=== PATIENT | male | born 1950 | race Caucasian/White ===

== ENCOUNTER 2019-02-10 10:24 | Inpatient (IN) ==
[2019-02-10] MEDS ORDERED: Isovue-370 500 ML BOTTLE IVP ONE ×2 (11:21→11:22)
--- NOTE | 2019-02-10 11:23 | Emergency Department Note ---
Disposition Clinical Impression: End stage liver disease, Colitis Disposition: Admitted As Inpatient Condition: Fair Referrals: Fredy Gilbert MD [Primary Care Provider] - Forms: ED Satisfaction Letter, Work/School Release Time of Disposition: 13:25 Abdominal Pain HPI - General Chief Complaint: ED Abdominal Pain Stated Complaint: ABD Pain,nausea, Time Seen by Provider: 02/10/19 11:16 Source: patient - History of Present Illness HPI Narrative: Patient is 69-year-old male presents to emergency room with a one month history of abdominal pain, swelling. The patient states that he cannot burp. The patient has had diminished appetite. The patient is an alcoholic. The patient denies any history of liver failure. The patient has never had a paracentesis. The patient also complains of leg swelling. He denies any chest pain, shortness of breath, headache fevers or chills. He states that he has not had any other diarrhea or urinary complaints. Patient denies any dysuria or urinary frequency. The patient states otherwise nothing else makes symptoms much better or worse. Pain Scale: 4 - Related Data Home Medications Medication Instructions Recorded Confirmed Metoprolol XL (24 HR) Succ [Toprol 100 mg PO PMHY 03/05/15 02/10/19 XL] Amlodipine Besylate 5 mg PO DAILY 02/10/19 02/10/19 Previous Rx's Medication Instructions Recorded Thiamine (B-1) [Vitamin B-1] 100 mg PO DAILY 20 Days tablet 03/06/15 Allergies Allergy/AdvReac Type Severity Reaction Status Date / Time No Known Allergies Allergy Verified 01/18/19 08:43 Review of Systems: As mentioned per history of present illness and as follows. Constitutional: Negative for chills or fever HENT: Negative for sore throat. Eyes: Negative for visual disturbance Respiratory: Negative for shortness of breath. Cardiovascular: Negative for palpitations. Gastrointestinal: Positive for abdominal pain Genitourinary: Negative for dysuria Musculoskeletal: Negative for back pain. Skin: Negative for rash. Neurological: Negative for focal weakness Psychiatric/Behavioral: Negative for depression Abdominal Pain PMH - Past Medical History Medical history: Reports: asthma, hypertension, other Male Surgical History: Reports: cholecystectomy, herniorrhaphy Psychiatric history: Reports: no psych history - Social History Smoking status: Current every day smoker Alcohol use: Reports: heavy Drug use: Reports: none Physical Exam PHYSICAL EXAM Constitutional: Well developed, Well nourished, No acute distress, Non-toxic appearance. HENT: Normocephalic, Atraumatic, Bilateral external ears normal, Oropharynx moist, No oral exudates, Nose normal. Neck- Normal range of motion, No tenderness, Supple. Eyes: PERRL, EOMI, Conjunctiva positive for scleral icterus,. Cardiovascular: Regular rate and rhythm without clicks, rubs, gallops or murmurs. Respiratory: Normal breath sounds, No respiratory distress, No wheezing, rhonchi, or crackles. GI: Abdomen is distended, overall nontender on exam, no evidence of guarding or peritoneal signs. Bowel sounds are active. Musculoskeletal: Good range of motion in all major joints. No tenderness to palpation or major deformities noted. +5/5 strength noted to all extremities. Integument: Warm, Dry, jaundiced appearing, No erythema, No rash. +2 to +3 pretibial edema lower extremities bilaterally Neurologic: Alert & oriented x 3, Normal sensory function, No focal deficits noted. CN II-XII grossly intact. - General Limitations: no limitations General appearance: alert, in no apparent distress Course Vital Signs Temperature 98.0 F 02/10/19 10:35 Pulse Rate 111 02/10/19 10:35 Respiratory Rate 18 02/10/19 10:35 Blood Pressure 139/83 02/10/19 10:35 O2 Sat by Pulse Oximetry 92 02/10/19 10:35 Temperature 98.0 F 02/10/19 10:35 Pulse Rate 93 02/10/19 11:43 Respiratory Rate 18 02/10/19 11:43 Blood Pressure 137/87 02/10/19 11:43 O2 Sat by Pulse Oximetry 96 02/10/19 11:43 Oxygen Delivery Oxygen Delivery Room Air Abdominal Pain - MDM Narrative Medical decision making narrative: EKG was performed that showed evidence of sinus rhythm, do not appreciate significant ST elevation or significant depression, AL and QT intervals within normal limits. Interpreted by myself Patient is jaundiced, patient appears to have liver failure, patient also does have ascites of the abdomen, patient also does have colitis as well on the CT. At this time the patient has a mildly elevated white count, no evidence of severe sepsis. Patient will be treated with IV antibiotics. The patient will be admitted to the hospitalist. At this time the patient will be admitted in stable condition. Patient was given IV Cipro and Flagyl here in the emergency room. Patient however is not septic, there is no evidence of ischemic colitis. Final impression 1. End-stage liver disease 2. Ascites 3. Ascending colitis - Lab Data Result diagrams: 02/10/19 11:11 02/10/19 11:11 Lab Results 02/10/19 02/10/19 Range/Units 11:11 11:11 WBC 12.9 H (4.3-11.1) K/mcL RBC 3.57 L (4.19-5.50) M/mcL Hgb 13.9 (12.9-16.9) g/dL Hct 40.0 (37.5-50.1) % MCV 112.0 H (83.0-100.0) fL MCH 38.9 H (28.0-33.3) pg MCHC 34.8 (31.6-35.5) g/dL RDW 15.2 H (11.5-14.5) % Plt Count 121 L (140-400) K/mcL MPV 12.3 (9.4-12.4) fL Immature Gran % 0.5 (0-4) % Seg Neutrophils % 75.9 % Lymphocytes % 11.7 % Monocytes % 9.0 % Eosinophils % 1.8 % Basophils % 1.1 % Neutrophils # 9.8 H (1.6-8.9) K/mcL Lymphocytes # 1.5 (0.6-4.6) K/mcL Monocytes # 1.2 (0.0-1.3) K/mcL Eosinophils # 0.2 (0.0-0.6) K/mcL Basophils # 0.1 (0.0-0.2) K/mcL Platelet Estimate Slight Decrease L (Normal) Macrocytosis Present A (Not Present) Sodium 136 (136-145) mEq/L Potassium 3.5 (3.5-5.1) mEq/L Chloride 100 (98-107) mEq/L Carbon Dioxide 26 (23-29) mEq/L BUN 9 (8-23) mg/dL Creatinine 0.69 L (0.70-1.30) mg/dL Est GFR ( Amer) > 60 (> 60) Est GFR (Non-Af Amer) > 60 (> 60) BUN/Creatinine Ratio 13 (6-26) Glucose 173 H (70-105) mg/dL Calculated Osmolality 285 (280-300) Calcium 8.9 (8.6-10.3) mg/dL Total Bilirubin 8.7 H (0.3-1.0) mg/dL Direct Bilirubin 4.3 H (0.0-0.2) mg/dL Indirect Bilirubin 4.4 H (0.0-1.2) mg/dL AST 91 H (13-39) Units/L ALT 40 (7-52) Units/L Alkaline Phosphatase 235 H (34-104) Units/L Troponin I < 0.03 (< 0.04) ng/mL Serum Total Protein 6.7 (6.4-8.9) g/dL Albumin 2.7 L (3.5-5.7) g/dL Globulin 4.0 H (2.4-3.5) g/dL Albumin/Globulin Ratio 0.7 L (1.1-2.2) Lipase 132 H (11-82) Units/L
[2019-02-10 11:30] LABS: Basophils # 0.1 K/mcL (0.0-0.2); Basophils % 1.1 %; Eosinophils # 0.2 K/mcL (0.0-0.6); Eosinophils % 1.8 %; Hemoglobin 13.9 g/dL (12.9-16.9); Immature Granulocytes % 0.5 % (0-4); Lymphocytes # 1.5 K/mcL (0.6-4.6); Lymphocytes % 11.7 %; Mean Corpuscular HGB Conc 34.8 g/dL (31.6-35.5); Mean Corpuscular Hemoglobin 38.9 pg (28.0-33.3); Mean Platelet Volume 12.3 fL (9.4-12.4); Monocytes # 1.2 K/mcL (0.0-1.3); Neutrophils # 9.8 K/mcL (1.6-8.9); Platelet Count 121 K/mcL (140-400); Red Blood Count 3.57 M/mcL (4.19-5.50); Red Cell Distribution Width 15.2 % (11.5-14.5); Segmented Neutrophils % 75.9 %; White Blood Count 12.9 K/mcL (4.3-11.1)
[2019-02-10 11:47] LABS: Alanine Aminotransferase 40 Units/L (7-52); Albumin 2.7 g/dL (3.5-5.7); Albumin/Globulin Ratio 0.7 (1.1-2.2); Alkaline Phosphatase 235 Units/L (34-104); Aspartate Amino Transferase 91 Units/L (13-39); BUN/Creatinine Ratio 13 (6-26); Bilirubin,Direct 4.3 mg/dL (0.0-0.2); Bilirubin,Indirect 4.4 mg/dL (0.0-1.2); Bilirubin,Total 8.7 mg/dL (0.3-1.0); Blood Urea Nitrogen 9 mg/dL (8-23); Calcium 8.9 mg/dL (8.6-10.3); Carbon Dioxide 26 mEq/L (23-29); Chloride 100 mEq/L (98-107); Glucose 173 mg/dL (70-105); Lipase 132 Units/L (11-82); Osmolality,Calculated 285 (280-300); Potassium 3.5 mEq/L (3.5-5.1); Sodium 136 mEq/L (136-145); Total Protein 6.7 g/dL (6.4-8.9); eGFR For African Americans > 60 (> 60); eGFR For Non-African Americans > 60 (> 60)
[2019-02-10 11:54] LABS: Troponin I < 0.03 ng/mL (< 0.04)
[2019-02-10 12:06] LABS: Platelet Estimate Slight Decrease (Normal)
[2019-02-10 12:15] LABS: Macrocytosis Present (Not Present)
[2019-02-10] MEDS ORDERED: MetroNIDAZOLE 500 MG/100 ML 500 MG/100 ML BAG IVPB ONE (13:13)
[2019-02-10] MEDS ORDERED: Naloxone 0.4 MG/ML INJ IVP PRN (15:29)
[2019-02-10] MEDS ORDERED: Acetaminophen 325 MG TABLET PO PRN (15:39)
[2019-02-10] MEDS ORDERED: *HR* Promethazine 25 MG/ML VIAL IVP PRN (15:39)
[2019-02-10 15:53] LABS: INR 1.6; Prothrombin Time 17.9 Seconds (9.4-12.1)
[2019-02-10 17:04] LABS: RBC,Peritoneal Fluid < 0.002 M/mcL
[2019-02-10 17:05] LABS: Appearance of Peritoneal Fl CLEAR (Clear)
[2019-02-10 17:28] LABS: Amylase,Peritoneal Fluid 19 Units/L (No Ref Range); Glucose,Peritoneal Fluid 183 mg/dL (No Ref Range); LDH,Peritoneal Fluid 51 Units/L (No Ref Range); Total Protein,Peritoneal Fluid < 3.0 g/dL
[2019-02-10 18:28] LABS: Basophils,Peritoneal Fluid 0 %; Eosinophils,Peritoneal Fluid 0 %
--- NOTE | 2019-02-10 18:34 | Procedure Note ---
Date of procedure: 02/10/19 Pre-op diagnosis: New ascites Post-op diagnosis: same Procedure: PROCEDURE: Diagnostic and Therapeutic Paracentesis CONSENT: Obtained CHAIRMAN & CEO: Chandler Salvador MD PROCEDURE PERFORMED: INDICATION: Ascites A time-out was performed prior to the procedure. Ascites fluid was visualized with ultrasound and site was marked. Chlorhexadine was used to prep the skin. The patient was then draped in steril fashion. Chlorhexadine was again used to prep the skin. 10ml of 1% Lidocaine was used for local anesthesia. A safecentesis needle was used to access the abdominal cavity and a catheter was placed that drained straw-colored fluid. This was attached to vacume containers and a total of 4L of fluid was drained. The catheter was then removed. The procedure was well tolerated. ESTIMATED BLOOD LOSS: <5ml COMPLICATIONS: None Surgeon: Abiel Salvador Was there an retail assistant store manager present: No Estimated blood loss (cc): 5 Specimen: sent to lab Pathology: other Condition: stable Disposition: floor
--- NOTE | 2019-02-10 18:45 | Internal Med History&Physical ---
Date of Encounter: 02/10/19 Time of Encounter: 18:36 Internal Medicine - H&P: HPI Chief complaint: Abdominal distention Admitted From: Home Plans for Post Hospital Care: Home History of present illness: Mr. Fang is a 69 year old male with history of alcoholism and HTN presents with abdominal distention and swelling. Patient states that over the last month he has noted distention in his abdomen and swelling in his lower extremities. Has gotten progressively worse the past week. No history of this happening in t he past. Over the last few days he has also noted left upper quadrant abdominal pain. Feels like a dull ache. Not associated with eating. Notes some nausea and vomiting but says overall he has had a very poor appetite has not been eating much. Says she is having infrequent bowel movements that are solid. Denies blood in stool or dark tarry stools. Denies hematemesis. Drinks 5-10 shots of hard liquor per day. This intake has been stable for years and no recent binge drinking. No history of hepatitis B or C. No history of IV drug use. No family history of liver disease that he knows of but not close with his family. In the ED, hypertensive but otherwise stable. WBC of 12.9. Plt 121. Bili 8.7. AST 91. Lipasse 132. INR 1.6. CT abd/pelvis with ascending colitis w/o perf as well as duodenitis and mild inflammation around pancreas. Moderate ascites. Admitted to medicine. Past Med Surg Social Fam HX - Past Medical History Medical history: asthma, hypertension, other Additional medical history: Smoker, broken ribs, hernia Psychiatric history: no psych history - Past Surgical History Surgical History: other Additional surgical history: hernia repair - Social History Smoking Status: Current every day smoker Smokeless Tobacco Status: No Alcohol use: heavy Drug use: none - Family History Father Living Status: Unknown Hx Family Cardiac Disorders: Yes (HTN) Mother Living Status: Internal Medicine - H&P: Meds Amlodipine Besylate 5 mg PO DAILY 02/10/19 [History] Metoprolol Succinate [Toprol Xl] 100 mg PO DAILY 02/10/19 [History] Thiamine HCl [Vitamin B-1] 100 mg PO DAILY 02/10/19 [History] Allergy/AdvReac Type Severity Reaction Status Date / Time No Known Allergies Allergy Verified 01/18/19 08:43 All Systems PM: A 10-system review of systems was performed and is negative for pertinent findings except as documented above in the HPI. Review of systems: General: Fevers / Chills / Weight loss / Night sweats Eyes: Blurry Vision / Change in Vision HENT: Ear Pain / Ear Drainage / Rhinorrhea / Throat Pain / Lymphadenopathy Cardiovascular: Chest Pain / Palpatations / Orthopnea / SHETH / Weight gain Lungs: Dyspnea / Wheezing / Cough / Sputum production / Pleurisy Abdomen: Abdomen pain / Abdominal distention / Nausea / Vomiting / Diarrhea / Const : Dysuria / Urinary Frequency / Urinary Urgency / Hematuria Extremities: LE edema / Ext pain / Ext erythema Skin: Rashes / Abrasions / Contusions Psych: Hallucinations / Anxiety / Depression Neuro: Weakness / Numbness / Tingling / Facial Droop / Dysphagia - Constitutional Vitals: Temp Pulse Resp BP Pulse Ox 97.6 F 87 20 151/76 94 02/10/19 17:31 02/10/19 17:31 02/10/19 17:31 02/10/19 17:31 02/10/19 17:31 Exam: General: Ill-appearing and in no acute distress HEENT: No erythema of posterior pharynx. No exudates. Lymphatics: No mandibular or cervical lymphadenopathy Cardiovascular: RRR. No murmurs. No chest wall tenderness. Lungs: Clear to auscelltation bilaterally. Regular chest rise. Abdomen: Tense ascites with mild LUQ tenderness. No rebound or gaurding. Nl bowel sounds. Extremities: 3+ pitting edema. 2+ pulses radial and pedal pulses Skin: No rahses, abrasions, or contusions. Nl cap refill. Psych: Nl attention. A&Ox3 Neuro: trimmer helper II-XII intact. 5/5 strength. Sensation to light touch and pinprick intact. Internal Med - H&P Results - Labs CBC & Chem 7: 02/10/19 11:11 02/10/19 11:11 Labs: Short CBC 02/10/19 Range/Units 11:11 WBC 12.9 H (4.3-11.1) K/mcL Hgb 13.9 (12.9-16.9) g/dL Hct 40.0 (37.5-50.1) % Plt Count 121 L (140-400) K/mcL Neutrophils # 9.8 H (1.6-8.9) K/mcL BMP 02/10/19 11:11 Sodium 136 Potassium 3.5 Chloride 100 Carbon Dioxide 26 BUN 9 Creatinine 0.69 L Glucose 173 H Calcium 8.9 Cardiac Enzymes 02/10/19 Range/Units 11:11 Troponin I < 0.03 (< 0.04) ng/mL Liver Function 02/10/19 Range/Units 11:11 Total Bilirubin 8.7 H (0.3-1.0) mg/dL Direct Bilirubin 4.3 H (0.0-0.2) mg/dL AST 91 H (13-39) Units/L ALT 40 (7-52) Units/L Alkaline Phosphatase 235 H (34-104) Units/L Albumin 2.7 L (3.5-5.7) g/dL - Impressions ITS Impressions Abdomen/Pelvis CT 02/10/19 11:21 IMPRESSION: 1. Acute ascending colitis. No obstruction or perforation. 2. Duodenal findings which may represent acute duodenitis. No evidence of obstruction or perforation. 3. Pancreatic neck 2 mm possible ductal calcification. There is mild peripancreatic edema which could represent reactive edema due to the duodenal inflammatory changes versus mild acute pancreatitis. No pseudocyst or necrosis. 4. Redemonstration of cirrhosis. No findings of primary hepatic malignancy. 5. Moderate ascites. No peritoneal abscess. 6. Redemonstration of bibasilar interstitial nonspecific reticulation. As previously suggested high-resolution CT thorax without contrast is recommended to allow evaluation for possible interstitial pneumonitis. D/ / 02/10/2019 12:53:03 Carmelo Aguilera MD / aaronay Interpreting Provider: Carmelo Aguilera MD - Assessment and Plan (1) Alcoholic cirrhosis of liver with ascites Current Visit: Yes Status: Acute Assessment and plan: With history of alcoholism presents with new onset anasarca in the setting of evidence of synthetic dysfunction and labs and imaging with evidence of cirrhosis and ascites along with colitis. -Alcoholic cirrhosis and a new diagnosis for patient -Acute decompensation likely in the setting of infectious colitis (see below) PLAN: - Status post diagnostic and therapeutic paracentesis - We will volume expand in setting of infection with albumin and start patient on Lasix and spironolactone tomorrow - RUQ US to assess for HCC - No evidence of GIB or HE - GI consult tomorrow (2) Colitis Current Visit: Yes Status: Acute Assessment and plan: Differential includes infectious, ischemic, and inflammatory. Given cirrhosis, concern for Phlegmonous colitis. - Blood cultures - F/u cx from paracenetesis - Ceftriaxone and Flagyl - Does not meet SBP criteria, however, we will presume this fluid is infected in the setting of surrounding colitis and volume expand with albumin - GI consult tomorrow (3) Alcohol abuse Current Visit: No Status: Chronic Assessment and plan: Encourage cessation. No history of withdrawal but will initiate CIWA. - CIWA (4) Thrombocytopenia Current Visit: Yes Status: Acute Assessment and plan: Likely secondary to liver disease - Time Spent With Patient Total time spent is greater than 50% in coordination of care (as documented) at patient's floor/unit and/or counseling patient: Greater than 35 minutes
[2019-02-10] MEDS: *HR* OxyCODONE Immed Rel 5 MG TABLET PO PRN (18:46)
[2019-02-10] MEDS ORDERED: cefTRIAXone 2,000 MG in Water for inj. (sterile) 20 ML IVP SCH (20:00)
[2019-02-10] MEDS: Albumin 25% 25gram/100mL 25 GM/100 ML IV.SOLN IVC SCH ×2 (21:03→23:44)
[2019-02-10] MEDS: Thiamine (B-1) 100 MG TABLET PO SCH (21:11)
[2019-02-11 01:23] LABS: Hepatitis B Surface Antigen Nonreactive (Nonreactive)
[2019-02-11] MEDS: *HR* OxyCODONE Immed Rel 5 MG TABLET PO PRN ×2 (01:29→16:59)
[2019-02-11] MEDS: Albumin 25% 25gram/100mL 25 GM/100 ML IV.SOLN IVC SCH ×2 (01:30→03:11)
[2019-02-11 01:49] LABS: Hepatitis B Core IgM Nonreactive (Nonreactive)
[2019-02-11 01:50] LABS: Hepatitis C Virus Antibody Nonreactive (Nonreactive)
[2019-02-11 01:52] LABS: Hepatitis A Antibody IgM Nonreactive (Nonreactive)
[2019-02-11] MEDS: Ondansetron ODT 4 MG TAB.RAPDIS SL PRN (03:20)
[2019-02-11] MEDS: *HR* Enoxaparin 40 MG/0.4 ML SYRINGE SQ SCH (05:10)
[2019-02-11 05:16] LABS: Red Cell Distribution Width 15.1 % (11.5-14.5)
[2019-02-11 05:18] LABS: Basophils # 0.1 K/mcL (0.0-0.2); Basophils % 1.1 %; Eosinophils # 0.4 K/mcL (0.0-0.6); Eosinophils % 3.2 %; Hematocrit 34.9 % (37.5-50.1); Immature Granulocytes % 0.4 % (0-4); Immature Platelets 11.6 % (1.1-6.1); Lymphocytes # 1.8 K/mcL (0.6-4.6); Lymphocytes % 14.5 %; Mean Corpuscular HGB Conc 34.4 g/dL (31.6-35.5); Mean Corpuscular Hemoglobin 38.1 pg (28.0-33.3); Mean Corpuscular Volume 110.8 fL (83.0-100.0); Mean Platelet Volume 12.4 fL (9.4-12.4); Monocytes # 1.1 K/mcL (0.0-1.3); Monocytes % 8.8 %; Neutrophils # 8.9 K/mcL (1.6-8.9); Red Blood Count 3.15 M/mcL (4.19-5.50); White Blood Count 12.3 K/mcL (4.3-11.1)
[2019-02-11 05:21] LABS: INR 1.9; Prothrombin Time 21.8 Seconds (9.4-12.1)
[2019-02-11 05:37] LABS: Alanine Aminotransferase 30 Units/L (7-52); Albumin 3.5 g/dL (3.5-5.7); Albumin/Globulin Ratio 1.3 (1.1-2.2); Alkaline Phosphatase 171 Units/L (34-104); Aspartate Amino Transferase 63 Units/L (13-39); BUN/Creatinine Ratio 15 (6-26); Bilirubin,Total 7.2 mg/dL (0.3-1.0); Blood Urea Nitrogen 9 mg/dL (8-23); Calcium 8.7 mg/dL (8.6-10.3); Carbon Dioxide 25 mEq/L (23-29); Chloride 104 mEq/L (98-107); Globulin 2.8 g/dL (2.4-3.5); Glucose 119 mg/dL (70-105); Magnesium 1.8 mg/dL (1.6-2.6); Osmolality,Calculated 284 (280-300); Potassium 3.3 mEq/L (3.5-5.1); Sodium 137 mEq/L (136-145); Total Protein 6.3 g/dL (6.4-8.9); eGFR For African Americans > 60 (> 60); eGFR For Non-African Americans > 60 (> 60)
[2019-02-11 05:38] LABS: Platelet Count 82 K/mcL (140-400)
[2019-02-11] MEDS ORDERED: MetroNIDAZOLE 500 MG/100 ML 500 MG/100 ML BAG IVPB SCH ×2 (06:00)
[2019-02-11 06:14] LABS: Hypochromasia Present (Not Present); Macrocytosis Present (Not Present); Platelet Estimate Decreased (Normal)
[2019-02-11] MEDS ORDERED: Furosemide 20 MG/2 ML VIAL IVP SCH (07:26)
[2019-02-11] MEDS: Thiamine (B-1) 100 MG TABLET PO SCH (09:41)
[2019-02-11] MEDS: cefTRIAXone 2,000 MG in Water for inj. (sterile) 20 ML IVP SCH (09:41)
[2019-02-11] MEDS: MetroNIDAZOLE 500 MG/100 ML 500 MG/100 ML BAG IVPB SCH ×2 (09:42→16:51)
--- NOTE | 2019-02-11 12:51 | Internal Med Progress Note ---
Hospitalist Progress Note - Encounter Date of Encounter: 02/11/19 Time of Encounter: 12:31 - Subjective Interval History: Patient feeling somewhat improved this morning. Urinating a moderate amount with Lasix given this morning I will probably need to go up on dose this afternoon - Exam Vitals: Temp Pulse Resp BP Pulse Ox 97.9 F 106 18 160/82 93 02/11/19 11:48 02/11/19 11:48 02/11/19 11:48 02/11/19 11:48 02/11/19 11:48 Exam: General: Ill-appearing and in no acute distress HEENT: No erythema of posterior pharynx. No exudates. Lymphatics: No mandibular or cervical lymphadenopathy Cardiovascular: RRR. No murmurs. No chest wall tenderness. Lungs: Clear to auscelltation bilaterally. Regular chest rise. Abdomen: Tense ascites with mild LUQ tenderness. No rebound or gaurding. Nl bowel sounds. Extremities: 3+ pitting edema. 2+ pulses radial and pedal pulses Skin: No rahses, abrasions, or contusions. Nl cap refill. Psych: Nl attention. A&Ox3 Neuro: potato chip maker II-XII intact. 5/5 strength. Sensation to light touch and pinprick intact. - Assessment and Plan (1) Alcoholic cirrhosis of liver with ascites Current Visit: Yes Status: Acute Assessment and Plan: Patient with history of alcoholism presents with new onset anasarca in the sett ing of evidence of synthetic dysfunction and labs and imaging with evidence of cirrhosis and ascites along with colitis. -Alcoholic cirrhosis a new diagnosis for patient No family hx of liver disease and viral hepatitis panel negative RUQ neg for evidence of HCC -Acute decompensation likely in the setting of infectious colitis (see below) -Status post diagnostic and therapeutic paracentesis - no evidence of SBP PLAN: - Lasix 20mg IV qd and spironolactone 50mg oral qd - Fluid and salt restriction - Treatment of colitis per below - Alcohol cessation - No evidence of GIB or HE (2) Colitis Current Visit: Yes Status: Acute Assessment and Plan: Differential includes infectious, ischemic, and inflammatory. Given cirrhosis, concern for Phlegmonous colitis. -Clinically improving with IV antibiotics -Blood cultures NGTD PLAN: - Ceftriaxone and Flagyl - F/u cx - Monitor clinically (3) Alcohol abuse Current Visit: No Status: Chronic Assessment and Plan: Encourage cessation. No history of withdrawal but will initiate CIWA. - CIWA (4) Thrombocytopenia Current Visit: Yes Status: Acute Assessment and Plan: Likely secondary to liver disease DVT Prophylaxis: LMWH - Time Spent with Patient Total time spent is greater than 50% in coordination of care (as documented) at patient's floor/unit and/or counseling patient: Greater than 35 minutes Internal Medicine: Result - Labs CBC & Chem 7: 02/11/19 04:35 02/11/19 04:35 Labs: Short CBC 02/11/19 Range/Units 04:35 WBC 12.3 H (4.3-11.1) K/mcL Hgb 12.0 L D (12.9-16.9) g/dL Hct 34.9 L (37.5-50.1) % Plt Count 82 L (140-400) K/mcL Neutrophils # 8.9 (1.6-8.9) K/mcL BMP 02/10/19 02/11/19 11:11 04:35 Sodium 136 137 Potassium 3.5 3.3 L Chloride 100 104 Carbon Dioxide 26 25 BUN 9 9 Creatinine 0.69 L 0.59 L Glucose 173 H 119 H Calcium 8.9 8.7 Cardiac Enzymes 02/10/19 Range/Units 11:11 Troponin I < 0.03 (< 0.04) ng/mL Liver Function 02/10/19 02/11/19 Range/Units 11:11 04:35 Total Bilirubin 8.7 H 7.2 H (0.3-1.0) mg/dL Direct Bilirubin 4.3 H (0.0-0.2) mg/dL AST 91 H 63 H (13-39) Units/L ALT 40 30 (7-52) Units/L Alkaline Phosphatase 235 H 171 H (34-104) Units/L Albumin 2.7 L 3.5 (3.5-5.7) g/dL - ABG Interpretation ABG results: PT/INR, D-dimer PT 21.8 Seconds (9.4-12.1) H 02/11/19 04:35 - Impressions Impressions Abdomen/Pelvis CT 02/10/19 11:21 IMPRESSION: 1. Acute ascending colitis. No obstruction or perforation. 2. Duodenal findings which may represent acute duodenitis. No evidence of obstruction or perforation. 3. Pancreatic neck 2 mm possible ductal calcification. There is mild peripancreatic edema which could represent reactive edema due to the duodenal inflammatory changes versus mild acute pancreatitis. No pseudocyst or necrosis. 4. Redemonstration of cirrhosis. No findings of primary hepatic malignancy. 5. Moderate ascites. No peritoneal abscess. 6. Redemonstration of bibasilar interstitial nonspecific reticulation. As previously suggested high-resolution CT thorax without contrast is recommended to allow evaluation for possible interstitial pneumonitis. D/ / 02/10/2019 12:53:03 Carmelo Aguilera MD / cornelio Interpreting Provider: Carmelo Aguilera MD Abdomen Ultrasound 02/11/19 08:00 IMPRESSION: Cirrhotic liver without definite focal liver lesion noted. Mild ascites which appears to be improved from recent CT exam. Additional incidental findings as above, none of which require dedicated imaging follow-up. D/ / 02/11/2019 08:54:46 Heladio Peraza MD / julissa Interpreting Provider: Heladio Peraza MD Consult Discharge Plan - Plan Referrals: Fredy Gilbert MD [Primary Care Provider] -
[2019-02-11] MEDS: Furosemide 40 MG/4 ML VIAL IVP SCH (16:52)
[2019-02-12] MEDS: MetroNIDAZOLE 500 MG/100 ML 500 MG/100 ML BAG IVPB SCH ×3 (00:34→18:17)
[2019-02-12] MEDS: *HR* OxyCODONE Immed Rel 5 MG TABLET PO PRN ×3 (00:46→18:16)
[2019-02-12 05:36] LABS: Hematocrit 36.5 % (37.5-50.1); Hemoglobin 12.2 g/dL (12.9-16.9); Immature Platelets 12.5 % (1.1-6.1); Mean Corpuscular HGB Conc 33.4 g/dL (31.6-35.5); Mean Corpuscular Hemoglobin 37.9 pg (28.0-33.3); Mean Corpuscular Volume 113.4 fL (83.0-100.0); Mean Platelet Volume 12.8 fL (9.4-12.4); Red Blood Count 3.22 M/mcL (4.19-5.50); Red Cell Distribution Width 15.4 % (11.5-14.5); White Blood Count 12.2 K/mcL (4.3-11.1)
[2019-02-12 05:42] LABS: Prothrombin Time 22.3 Seconds (9.4-12.1)
[2019-02-12] MEDS: *HR* Enoxaparin 40 MG/0.4 ML SYRINGE SQ SCH (05:42)
[2019-02-12 05:53] LABS: Alanine Aminotransferase 34 Units/L (7-52); Albumin 3.4 g/dL (3.5-5.7); Albumin/Globulin Ratio 1.1 (1.1-2.2); Alkaline Phosphatase 180 Units/L (34-104); Aspartate Amino Transferase 73 Units/L (13-39); BUN/Creatinine Ratio 12 (6-26); Bilirubin,Total 8.5 mg/dL (0.3-1.0); Blood Urea Nitrogen 9 mg/dL (8-23); Calcium 8.7 mg/dL (8.6-10.3); Carbon Dioxide 26 mEq/L (23-29); Chloride 101 mEq/L (98-107); Globulin 3.1 g/dL (2.4-3.5); Glucose 138 mg/dL (70-105); Osmolality,Calculated 281 (280-300); Potassium 3.3 mEq/L (3.5-5.1); Sodium 135 mEq/L (136-145); Total Protein 6.5 g/dL (6.4-8.9); eGFR For African Americans > 60 (> 60); eGFR For Non-African Americans > 60 (> 60)
[2019-02-12] MEDS: cefTRIAXone 2,000 MG in Water for inj. (sterile) 20 ML IVP SCH (07:43)
[2019-02-12] MEDS: Furosemide 40 MG/4 ML VIAL IVP SCH ×2 (07:43→18:17)
[2019-02-12] MEDS: Thiamine (B-1) 100 MG TABLET PO SCH (07:43)
--- NOTE | 2019-02-12 10:57 | Internal Med Progress Note ---
Hospitalist Progress Note - Encounter Date of Encounter: 02/12/19 Time of Encounter: 10:55 - Subjective Interval History: Up walking this morning. Notes mild improvement in swelling and is urinating a lot. - Exam Vitals: Temp Pulse Resp BP Pulse Ox 98.0 F 103 17 112/69 95 02/12/19 07:00 02/12/19 07:00 02/12/19 07:00 02/12/19 07:00 02/12/19 07:00 Exam: General: Ill-appearing and in no acute distress HEENT: No erythema of posterior pharynx. No exudates. Lymphatics: No mandibular or cervical lymphadenopathy Cardiovascular: RRR. No murmurs. No chest wall tenderness. Lungs: Clear to auscelltation bilaterally. Regular chest rise. Abdomen: Tense ascites with mild LUQ tenderness. No rebound or gaurding. Nl bowel sounds. Extremities: 3+ pitting edema. 2+ pulses radial and pedal pulses Skin: No rahses, abrasions, or contusions. Nl cap refill. Psych: Nl attention. A&Ox3 Neuro: assisted living executive director II-XII intact. 5/5 strength. Sensation to light touch and pinprick intact. - Assessment and Plan (1) Alcoholic cirrhosis of liver with ascites Current Visit: Yes Status: Acute Assessment and Plan: Patient with history of alcoholism presents with new onset anasarca in the setting of evidence of synthetic dysfunction and labs and imaging with evidence of cirrhosis and ascites along with colitis. -Alcoholic cirrhosis a new diagnosis for patient No family hx of liver disease and viral hepatitis panel negative RUQ neg for evidence of HCC -Acute decompensation likely in the setting of infectious colitis (see below) -Status post diagnostic and therapeutic paracentesis - no evidence of SBP -Diuresing well with current dosing of lasix. Will go up to 100mg of Aldactone to meet 5/2 ratio PLAN: - Lasix 40mg IV bid and spironolactone 100mg oral qd - Fluid and salt restriction - Treatment of colitis per below - Alcohol cessation - No evidence of GIB or HE - but will add lactulose bc not having BMs (2) Colitis Current Visit: Yes Status: Acute Assessment and Plan: Differential includes infectious, ischemic, and inflammatory. Given cirrhosis, concern for Phlegmonous colitis. -Clinically improving with IV antibiotics -Blood cultures NGTD PLAN: - Ceftriaxone and Flagyl - F/u cx - Monitor clinically (3) Alcohol abuse Current Visit: No Status: Chronic Assessment and Plan: Encourage cessation. No history of withdrawal but will initiate CIWA. - CIWA (4) Thrombocytopenia Current Visit: Yes Status: Acute Assessment and Plan: Likely secondary to liver disease DVT Prophylaxis: LMWH - Time Spent with Patient Total time spent is greater than 50% in coordination of care (as documented) at patient's floor/unit and/or counseling patient: Greater than 35 minutes Plan of Care Discussed with: patient Internal Medicine: Result - Labs CBC & Chem 7: 02/12/19 04:30 02/12/19 04:30 Labs: Short CBC 02/12/19 Range/Units 04:30 WBC 12.2 H (4.3-11.1) K/mcL Hgb 12.2 L (12.9-16.9) g/dL Hct 36.5 L (37.5-50.1) % Plt Count 83 L (140-400) K/mcL BMP 02/12/19 04:30 Sodium 135 L Potassium 3.3 L Chloride 101 Carbon Dioxide 26 BUN 9 Creatinine 0.78 Glucose 138 H Calcium 8.7 Liver Function 02/12/19 Range/Units 04:30 Total Bilirubin 8.5 H (0.3-1.0) mg/dL AST 73 H (13-39) Units/L ALT 34 (7-52) Units/L Alkaline Phosphatase 180 H (34-104) Units/L Albumin 3.4 L (3.5-5.7) g/dL - ABG Interpretation ABG results: PT/INR, D-dimer PT 22.3 Seconds (9.4-12.1) H 02/12/19 04:30 Consult Discharge Plan - Plan Referrals: Fredy Gilbert MD [Primary Care Provider] -
[2019-02-12] MEDS: Lactulose Oral Soln 20 GM/30 ML UDC PO SCH ×2 (11:31→20:53)
--- NOTE | 2019-02-12 23:48 | Electrocardiograph Report ---
[employer] Test Date: 2019-02-10 Pat Name: Melquiades Fang Department: [id number] Room: 2A26 Gender: M Public Services Assistant: Tresa : 1950 Requested By: Zion Rowland Order Number: [id number] Reading MD: Steven Coates Measurements Intervals [place] Rate: 102 P: 34 [place]: 155 QRS: -19 QRSD: 93 T: 29 QT: 347 QTc: 406 Interpretive Statements SINUS TACHYCARDIA WITH OCCASIONAL SUPRAVENTRICULAR PREMATURE COMPLEXES MODERATE ST DEPRESSION Left axis deviation Electronically Signed On 02-12-2019 23:45:53 EDT by Steven Coates
[2019-02-13] MEDS: MetroNIDAZOLE 500 MG/100 ML 500 MG/100 ML BAG IVPB SCH ×3 (00:03→15:12)
[2019-02-13] MEDS: *HR* OxyCODONE Immed Rel 5 MG TABLET PO PRN ×4 (00:10→20:16)
[2019-02-13] MEDS: *HR* Enoxaparin 40 MG/0.4 ML SYRINGE SQ SCH (06:07)
[2019-02-13 06:45] LABS: Hemoglobin 11.6 g/dL (12.9-16.9); Red Cell Distribution Width 15.4 % (11.5-14.5)
[2019-02-13 06:47] LABS: Immature Platelets 11.9 % (1.1-6.1); Mean Corpuscular HGB Conc 34.1 g/dL (31.6-35.5); Mean Corpuscular Hemoglobin 38.7 pg (28.0-33.3); Mean Corpuscular Volume 113.3 fL (83.0-100.0); Mean Platelet Volume 12.1 fL (9.4-12.4); White Blood Count 12.4 K/mcL (4.3-11.1)
[2019-02-13 06:58] LABS: Prothrombin Time 22.3 Seconds (9.4-12.1)
[2019-02-13 07:15] LABS: Alanine Aminotransferase 32 Units/L (7-52); Albumin 3.1 g/dL (3.5-5.7); Alkaline Phosphatase 164 Units/L (34-104); Aspartate Amino Transferase 68 Units/L (13-39); BUN/Creatinine Ratio 14 (6-26); Blood Urea Nitrogen 10 mg/dL (8-23); Calcium 8.7 mg/dL (8.6-10.3); Carbon Dioxide 26 mEq/L (23-29); Chloride 102 mEq/L (98-107); Globulin 3.1 g/dL (2.4-3.5); Glucose 149 mg/dL (70-105); Potassium 3.8 mEq/L (3.5-5.1); Total Protein 6.2 g/dL (6.4-8.9); eGFR For African Americans > 60 (> 60); eGFR For Non-African Americans > 60 (> 60)
[2019-02-13 07:48] LABS: Osmolality,Calculated 284 (280-300); Sodium 136 mEq/L (136-145)
[2019-02-13] MEDS: cefTRIAXone 2,000 MG in Water for inj. (sterile) 20 ML IVP SCH (07:57)
[2019-02-13] MEDS: Lactulose Oral Soln 20 GM/30 ML UDC PO SCH ×2 (07:57→20:17)
[2019-02-13] MEDS: Thiamine (B-1) 100 MG TABLET PO SCH (07:57)
[2019-02-13] MEDS: Furosemide 40 MG/4 ML VIAL IVP SCH ×3 (07:57→20:17)
[2019-02-13] MEDS: Ondansetron ODT 4 MG TAB.RAPDIS SL PRN (08:17)
--- NOTE | 2019-02-13 08:47 | Internal Med Progress Note ---
Hospitalist Progress Note - Encounter Date of Encounter: 02/13/19 Time of Encounter: 08:45 - Subjective Interval History: Appears to still be responding to Lasix with -1200+20 hours, however, no clinical change on physical exam. - Exam Vitals: Temp Pulse Resp BP Pulse Ox 98.4 F 109 18 124/70 92 02/13/19 07:27 02/13/19 07:27 02/13/19 07:27 02/13/19 07:27 02/13/19 07:27 Exam: General: Ill-appearing and in no acute distress HEENT: No erythema of posterior pharynx. No exudates. Lymphatics: No mandibular or cervical lymphadenopathy Cardiovascular: RRR. No murmurs. No chest wall tenderness. Lungs: Clear to auscelltation bilaterally. Regular chest rise. Abdomen: Tense ascites with mild LUQ tenderness. No rebound or gaurding. Nl bowel sounds. Extremities: 3+ pitting edema. 2+ pulses radial and pedal pulses Skin: No rahses, abrasions, or contusions. Nl cap refill. Psych: Nl attention. 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 5/5 strength. Sensation to light touch and pinprick intact. - Assessment and Plan (1) Alcoholic cirrhosis of liver with ascites Current Visit: Yes Status: Acute Assessment and Plan: Patient with history of alcoholism presents with new onset anasarca in the setting of evidence of synthetic dysfunction and labs and imaging with evidence of cirrhosis and ascites along with colitis. -Alcoholic cirrhosis a new diagnosis for patient No family hx of liver disease and viral hepatitis panel negative RUQ neg for evidence of HCC -Acute decompensation likely in the setting of infectious colitis (see below) -Status post diagnostic and therapeutic paracentesis - no evidence of SBP -Unclear if still diuresing well. STANDING WEIGHT TODAY 102.8 PLAN: - Lasix 40mg --> 60mg IV bid and spironolactone 100mg oral qd - Fluid and salt restriction - Treatment of colitis per below - Alcohol cessation - Lactulose - No evidence of GIB or HE (2) Colitis Current Visit: Yes Status: Acute Assessment and Plan: Differential includes infectious, ischemic, and inflammatory. Given cirrhosis, concern for Phlegmonous colitis. -Leukocytosis stable and no fevers or abdominal pain. This leukocytosis not coming down the next 1-2 days we will repeat imaging -Blood cultures NGTD PLAN: - Ceftriaxone and Flagyl - F/u cx - Monitor clinically (3) Alcohol abuse Current Visit: No Status: Chronic Assessment and Plan: Encourage cessation. No history of withdrawal but will initiate CIWA. - CIWA (4) Thrombocytopenia Current Visit: Yes Status: Acute Assessment and Plan: Likely secondary to liver disease DVT Prophylaxis: LMWH - Time Spent with Patient Total time spent is greater than 50% in coordination of care (as documented) at patient's floor/unit and/or counseling patient: Greater than 35 minutes Plan of Care Discussed with: patient Internal Medicine: Result - Labs CBC & Chem 7: 02/13/19 06:17 02/13/19 06:17 Labs: Short CBC 02/13/19 Range/Units 06:17 WBC 12.4 H (4.3-11.1) K/mcL Hgb 11.6 L (12.9-16.9) g/dL Hct 34.0 L (37.5-50.1) % Plt Count 76 L (140-400) K/mcL BMP 02/13/19 06:17 Sodium 136 Potassium 3.8 Chloride 102 Carbon Dioxide 26 BUN 10 Creatinine 0.71 Glucose 149 H Calcium 8.7 Liver Function 02/13/19 Range/Units 06:17 Total Bilirubin 8.0 H (0.3-1.0) mg/dL AST 68 H (13-39) Units/L ALT 32 (7-52) Units/L Alkaline Phosphatase 164 H (34-104) Units/L Albumin 3.1 L (3.5-5.7) g/dL - ABG Interpretation ABG results: PT/INR, D-dimer PT 22.3 Seconds (9.4-12.1) H 02/13/19 06:17 Consult Discharge Plan - Plan Referrals: Fredy Gilbert MD [Primary Care Provider] -
[2019-02-14 01:39] LABS: Hemoglobin 11.4 g/dL (12.9-16.9); Red Cell Distribution Width 15.4 % (11.5-14.5)
[2019-02-14 01:41] LABS: Hematocrit 33.4 % (37.5-50.1); Immature Platelets 15.6 % (1.1-6.1); Mean Corpuscular HGB Conc 34.1 g/dL (31.6-35.5); Mean Corpuscular Hemoglobin 38.1 pg (28.0-33.3); Mean Corpuscular Volume 111.7 fL (83.0-100.0); Mean Platelet Volume 12.5 fL (9.4-12.4); Red Blood Count 2.99 M/mcL (4.19-5.50); White Blood Count 13.1 K/mcL (4.3-11.1)
[2019-02-14 01:48] LABS: Prothrombin Time 22.6 Seconds (9.4-12.1)
[2019-02-14 01:53] LABS: Alanine Aminotransferase 34 Units/L (7-52); Albumin 3.1 g/dL (3.5-5.7); Albumin/Globulin Ratio 1.1 (1.1-2.2); Alkaline Phosphatase 165 Units/L (34-104); Aspartate Amino Transferase 64 Units/L (13-39); BUN/Creatinine Ratio 14 (6-26); Bilirubin,Total 7.1 mg/dL (0.3-1.0); Blood Urea Nitrogen 10 mg/dL (8-23); Calcium 8.2 mg/dL (8.6-10.3); Carbon Dioxide 28 mEq/L (23-29); Chloride 100 mEq/L (98-107); Globulin 2.9 g/dL (2.4-3.5); Glucose 158 mg/dL (70-105); Osmolality,Calculated 282 (280-300); Potassium 3.4 mEq/L (3.5-5.1); Sodium 135 mEq/L (136-145); eGFR For African Americans > 60 (> 60); eGFR For Non-African Americans > 60 (> 60)
[2019-02-14] MEDS: *HR* Enoxaparin 40 MG/0.4 ML SYRINGE SQ SCH (05:22)
[2019-02-14] MEDS ORDERED: Isovue-370 500 ML BOTTLE IVP ONE (07:13)
[2019-02-14] MEDS: cefTRIAXone 2,000 MG in Water for inj. (sterile) 20 ML IVP SCH (08:00)
[2019-02-14] MEDS: Furosemide 40 MG/4 ML VIAL IVP SCH (08:01)
[2019-02-14] MEDS: Lactulose Oral Soln 20 GM/30 ML UDC PO SCH ×2 (08:02→21:01)
[2019-02-14] MEDS: Thiamine (B-1) 100 MG TABLET PO SCH (08:02)
[2019-02-14] MEDS: MetroNIDAZOLE 500 MG/100 ML 500 MG/100 ML BAG IVPB SCH ×3 (08:02→15:46)
[2019-02-14] MEDS: Ondansetron ODT 4 MG TAB.RAPDIS SL PRN ×2 (08:07→15:46)
[2019-02-14] MEDS: *HR* OxyCODONE Immed Rel 5 MG TABLET PO PRN ×2 (08:07→21:02)
[2019-02-14] MEDS ORDERED: Nicotine 2 MG GUM BC PRN (08:11)
--- NOTE | 2019-02-14 08:38 | Internal Med Progress Note ---
Hospitalist Progress Note - Encounter Date of Encounter: 02/14/19 Time of Encounter: 08:36 - Subjective Interval History: Patient doing well this morning. More mobile with less fluid on board. Weight down, however, increasing leukocytosis. Denies dental pain or fevers and chills - Exam Vitals: Temp Pulse Resp BP Pulse Ox 98.6 F 103 18 125/74 93 02/14/19 07:42 02/14/19 07:42 02/14/19 07:42 02/14/19 07:42 02/14/19 07:42 Exam: General: Ill-appearing and in no acute distress HEENT: No erythema of posterior pharynx. No exudates. Lymphatics: No mandibular or cervical lymphadenopathy Cardiovascular: RRR. No murmurs. No chest wall tenderness. Lungs: Clear to auscelltation bilaterally. Regular chest rise. Abdomen: Still distended but nontender abdomen. No rebound or gaurding. Nl bowel sounds. Extremities: 3+ pitting edema. 2+ pulses radial and pedal pulses Skin: No rahses, abrasions, or contusions. Nl cap refill. Psych: Nl attention. 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 5/5 strength. Sensation to light touch and pinprick intact. - Assessment and Plan (1) Alcoholic cirrhosis of liver with ascites Current Visit: Yes Status: Acute Assessment and Plan: Patient with history of alcoholism presents with new onset anasarca in the sett ing of evidence of synthetic dysfunction and labs and imaging with evidence of cirrhosis and ascites along with colitis. -Alcoholic cirrhosis a new diagnosis for patient No family hx of liver disease and viral hepatitis panel negative RUQ neg for evidence of HCC -Acute decompensation likely in the setting of infectious colitis (see below) -Status post diagnostic and therapeutic paracentesis - no evidence of SBP -Feels less distended, however, still grossly hypervolemic on physical exam -Appears to be on correct Lasix dosing. STANDING WEIGHT TODAY 100.9kg, down from 102.8kg yest PLAN: - Lasix 60mg IV bid and spironolactone 100mg oral qd - Fluid and salt restriction - Strict I's and O's and daily weights - Treatment of colitis per below - Alcohol cessation - Lactulose - No evidence of GIB or HE (2) Colitis Current Visit: Yes Status: Acute Assessment and Plan: Differential includes infectious, ischemic, and inflammatory. Given cirrhosis, concern for Phlegmonous colitis. -Leukocytosis increased today. Otherwise clinically stable with normal vitals and no abdominal pain. We will repeat imaging to assess for abscess or other complications -Blood cultures NGTD PLAN: - CT abdomen and pelvis with oral and IV contrast - Ceftriaxone and Flagyl - F/u cx - Monitor clinically (3) Alcohol abuse Current Visit: No Status: Chronic Assessment and Plan: Encourage cessation. No history of withdrawal but will initiate CIWA. - CIWA (4) Thrombocytopenia Current Visit: Yes Status: Acute Assessment and Plan: Likely secondary to liver disease. Stable DVT Prophylaxis: LMWH Internal Medicine: Result - Labs CBC & Chem 7: 02/14/19 01:11 02/14/19 01:11 Labs: Short CBC 02/14/19 Range/Units 01:11 WBC 13.1 H (4.3-11.1) K/mcL Hgb 11.4 L (12.9-16.9) g/dL Hct 33.4 L (37.5-50.1) % Plt Count 70 L (140-400) K/mcL BMP 02/14/19 01:11 Sodium 135 L Potassium 3.4 L Chloride 100 Carbon Dioxide 28 BUN 10 Creatinine 0.70 Glucose 158 H Calcium 8.2 L Liver Function 02/14/19 Range/Units 01:11 Total Bilirubin 7.1 H (0.3-1.0) mg/dL AST 64 H (13-39) Units/L ALT 34 (7-52) Units/L Alkaline Phosphatase 165 H (34-104) Units/L Albumin 3.1 L (3.5-5.7) g/dL - ABG Interpretation ABG results: PT/INR, D-dimer PT 22.6 Seconds (9.4-12.1) H 02/14/19 01:11 Consult Discharge Plan - Plan Referrals: Fredy Gilbert MD [Primary Care Provider] -
[2019-02-14] MEDS: Nicotine 21 MG PATCH.TD24 TD SCH (09:48)
[2019-02-14] MEDS ORDERED: Furosemide 80 MG in 0.9 % Sodium Chloride 50 ML IV SCH (17:10)
[2019-02-15] MEDS: MetroNIDAZOLE 500 MG/100 ML 500 MG/100 ML BAG IVPB SCH ×4 (00:07→23:43)
[2019-02-15] MEDS: Ondansetron ODT 4 MG TAB.RAPDIS SL PRN (04:09)
[2019-02-15] MEDS: *HR* Enoxaparin 40 MG/0.4 ML SYRINGE SQ SCH (04:09)
[2019-02-15 05:58] LABS: Hematocrit 35.4 % (37.5-50.1); Mean Corpuscular Volume 109.9 fL (83.0-100.0); Red Blood Count 3.22 M/mcL (4.19-5.50)
[2019-02-15 06:00] LABS: Hemoglobin 12.3 g/dL (12.9-16.9); Immature Platelets 12.8 % (1.1-6.1); Mean Corpuscular HGB Conc 34.7 g/dL (31.6-35.5); Mean Corpuscular Hemoglobin 38.2 pg (28.0-33.3); Mean Platelet Volume 12.2 fL (9.4-12.4); White Blood Count 12.7 K/mcL (4.3-11.1)
[2019-02-15 06:03] LABS: Prothrombin Time 23.1 Seconds (9.4-12.1)
[2019-02-15 06:16] LABS: Alanine Aminotransferase 34 Units/L (7-52); Albumin 3.1 g/dL (3.5-5.7); Alkaline Phosphatase 155 Units/L (34-104); Aspartate Amino Transferase 60 Units/L (13-39); BUN/Creatinine Ratio 16 (6-26); Bilirubin,Total 7.6 mg/dL (0.3-1.0); Blood Urea Nitrogen 11 mg/dL (8-23); Calcium 8.4 mg/dL (8.6-10.3); Carbon Dioxide 27 mEq/L (23-29); Chloride 98 mEq/L (98-107); Glucose 122 mg/dL (70-105); Osmolality,Calculated 283 (280-300); Potassium 3.3 mEq/L (3.5-5.1); Sodium 136 mEq/L (136-145); Total Protein 6.1 g/dL (6.4-8.9); eGFR For African Americans > 60 (> 60); eGFR For Non-African Americans > 60 (> 60)
[2019-02-15] MEDS ORDERED: Furosemide 80 MG in 0.9 % Sodium Chloride 50 ML IV SCH (07:15)
[2019-02-15] MEDS: Lactulose Oral Soln 20 GM/30 ML UDC PO SCH ×2 (07:53→21:18)
[2019-02-15] MEDS: Furosemide 40 MG/4 ML VIAL IVP SCH ×2 (07:53→17:25)
[2019-02-15] MEDS: *HR* OxyCODONE Immed Rel 5 MG TABLET PO PRN ×2 (07:54→17:32)
[2019-02-15] MEDS: cefTRIAXone 2,000 MG in Water for inj. (sterile) 20 ML IVP SCH (07:54)
[2019-02-15] MEDS: Nicotine 21 MG PATCH.TD24 TD SCH (07:55)
[2019-02-15] MEDS: Thiamine (B-1) 100 MG TABLET PO SCH (07:56)
--- NOTE | 2019-02-15 10:40 | Internal Med Progress Note ---
Hospitalist Progress Note - Encounter Date of Encounter: 02/15/19 Time of Encounter: 10:16 - Subjective Interval History: Patient feels well today. More mobile. Weight is down today and leukocytosis trending down. - Exam Vitals: Temp Pulse Resp BP Pulse Ox 98.5 F 115 18 153/88 91 02/15/19 07:49 02/15/19 07:49 02/15/19 07:49 02/15/19 07:49 02/15/19 07:49 Exam: General: Ill-appearing and in no acute distress HEENT: No erythema of posterior pharynx. No exudates. Lymphatics: No mandibular or cervical lymphadenopathy Cardiovascular: RRR. No murmurs. No chest wall tenderness. Lungs: Clear to auscelltation bilaterally. Regular chest rise. Abdomen: Still distended but nontender abdomen. No rebound or gaurding. Nl bowel sounds. Extremities: 3+ pitting edema. 2+ pulses radial and pedal pulses Skin: No rahses, abrasions, or contusions. Nl cap refill. Psych: Nl attention. 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 5/5 strength. Sensation to light touch and pinprick intact. - Assessment and Plan (1) Alcoholic cirrhosis of liver with ascites Current Visit: Yes Status: Acute Assessment and Plan: Patient with history of alcoholism presents with new onset anasarca in the setting of evidence of synthetic dysfunction and labs and imaging with evidence of cirrhosis and ascites along with colitis. -Alcoholic cirrhosis a new diagnosis for patient No family hx of liver disease and viral hepatitis panel negative RUQ neg for evidence of HCC -Acute decompensation likely in the setting of infectious colitis (see below) -Status post diagnostic and therapeutic paracentesis - no evidence of SBP -Still grossly hypervolemic but making progress with diuresis -STANDING WEIGHT TODAY 99.3kg, down from 100.9kg yest PLAN: - Lasix 80mg IV bid and spironolactone 100mg oral qd - Fluid and salt restriction - Strict I's and O's and daily weights - Treatment of colitis per below - Alcohol cessation - Lactulose - No evidence of GIB or HE (2) Colitis Current Visit: Yes Status: Acute Assessment and Plan: Differential includes infectious, ischemic, and inflammatory. Given cirrhosis, concern for Phlegmonous colitis. -Repeat CT scan yesterday without major changes. Leukocytosis trending down today. -Blood cultures NGTD -We will continue antibiotics for a 10-14 day course PLAN: - Ceftriaxone and Flagyl - F/u cx - Monitor clinically (3) Alcohol abuse Current Visit: No Status: Chronic Assessment and Plan: Encourage cessation. No history of withdrawal but will initiate CIWA. - CIWA (4) Thrombocytopenia Current Visit: Yes Status: Acute Assessment and Plan: Likely secondary to liver disease. Stable DVT Prophylaxis: LMWH - Time Spent with Patient Total time spent is greater than 50% in coordination of care (as documented) at patient's floor/unit and/or counseling patient: Plan of Care Discussed with: patient Internal Medicine: Result - Labs CBC & Chem 7: 02/15/19 05:27 02/15/19 05:27 Labs: Short CBC 02/15/19 Range/Units 05:27 WBC 12.7 H (4.3-11.1) K/mcL Hgb 12.3 L (12.9-16.9) g/dL Hct 35.4 L (37.5-50.1) % Plt Count 80 L (140-400) K/mcL BMP 02/15/19 05:27 Sodium 136 Potassium 3.3 L Chloride 98 Carbon Dioxide 27 BUN 11 Creatinine 0.69 L Glucose 122 H Calcium 8.4 L Liver Function 02/15/19 Range/Units 05:27 Total Bilirubin 7.6 H (0.3-1.0) mg/dL AST 60 H (13-39) Units/L ALT 34 (7-52) Units/L Alkaline Phosphatase 155 H (34-104) Units/L Albumin 3.1 L (3.5-5.7) g/dL - ABG Interpretation ABG results: PT/INR, D-dimer PT 23.1 Seconds (9.4-12.1) H 02/15/19 05:27 - Impressions Impressions Abdomen/Pelvis CT 02/14/19 10:00 IMPRESSION: 1. Significant decrease in ascites 2. Findings in the liver again suggesting cirrhosis 3. Infiltration of the fat has increased adjacent to the 2nd and 3rd portion of the duodenum suggesting duodenitis 4. Wall thickening again seen in the ascending colon suggesting colitis which could be inflammatory or infectious 5. No obstructive uropathy D/ / Abiel Carrillo MD / Abiel Carrillo MD Interpreting Provider: Abiel Carrillo MD Consult Discharge Plan - Plan Referrals: Fredy Gilbert MD [Primary Care Provider] -
--- NOTE | 2019-02-15 11:50 | Electrocardiograph Report ---
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
[2019-02-16] MEDS: *HR* OxyCODONE Immed Rel 5 MG TABLET PO PRN ×2 (05:34→20:18)
[2019-02-16] MEDS: *HR* Enoxaparin 40 MG/0.4 ML SYRINGE SQ SCH (05:34)
[2019-02-16 05:57] LABS: Hematocrit 34.8 % (37.5-50.1); Mean Corpuscular HGB Conc 34.5 g/dL (31.6-35.5); Mean Corpuscular Volume 110.1 fL (83.0-100.0); Mean Platelet Volume 12.2 fL (9.4-12.4); Red Blood Count 3.16 M/mcL (4.19-5.50); Red Cell Distribution Width 15.1 % (11.5-14.5); White Blood Count 11.5 K/mcL (4.3-11.1)
[2019-02-16 06:13] LABS: BUN/Creatinine Ratio 18 (6-26); Blood Urea Nitrogen 12 mg/dL (8-23); Calcium 8.8 mg/dL (8.6-10.3); Carbon Dioxide 29 mEq/L (23-29); Chloride 101 mEq/L (98-107); Glucose 107 mg/dL (70-105); Osmolality,Calculated 282 (280-300); Potassium 3.8 mEq/L (3.5-5.1); Sodium 136 mEq/L (136-145); eGFR For African Americans > 60 (> 60); eGFR For Non-African Americans > 60 (> 60)
[2019-02-16] MEDS: Furosemide 40 MG/4 ML VIAL IVP SCH ×2 (08:19→16:02)
[2019-02-16] MEDS: cefTRIAXone 2,000 MG in Water for inj. (sterile) 20 ML IVP SCH (08:23)
[2019-02-16] MEDS: Thiamine (B-1) 100 MG TABLET PO SCH (08:23)
[2019-02-16] MEDS: MetroNIDAZOLE 500 MG/100 ML 500 MG/100 ML BAG IVPB SCH ×3 (08:23→23:49)
[2019-02-16] MEDS: Nicotine 21 MG PATCH.TD24 TD SCH (08:23)
[2019-02-16] MEDS: Lactulose Oral Soln 20 GM/30 ML UDC PO SCH ×2 (08:23→20:18)
--- NOTE | 2019-02-16 08:31 | Internal Med Progress Note ---
Hospitalist Progress Note - Encounter Date of Encounter: 02/16/19 Time of Encounter: 08:28 - Subjective Interval History: Diabetes during well, however, patient says he is feeling less stable on his feet. Has been more stable over the last couple days. Request physical therapy evaluation. - Exam Vitals: Temp Pulse Resp BP Pulse Ox 98.1 F 99 20 137/77 95 02/16/19 07:49 02/16/19 07:49 02/16/19 07:49 02/16/19 07:49 02/16/19 07:49 Exam: General: Ill-appearing and in no acute distress HEENT: No erythema of posterior pharynx. No exudates. Lymphatics: No mandibular or cervical lymphadenopathy Cardiovascular: RRR. No murmurs. No chest wall tenderness. Lungs: Clear to auscelltation bilaterally. Regular chest rise. Abdomen: Still distended but nontender abdomen. No rebound or gaurding. Nl bowel sounds. Extremities: 3+ pitting edema. 2+ pulses radial and pedal pulses Skin: No rahses, abrasions, or contusions. Nl cap refill. Psych: Nl attention. 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 5/5 strength. Sensation to light touch and pinprick intact. - Assessment and Plan (1) Alcoholic cirrhosis of liver with ascites Current Visit: Yes Status: Acute Assessment and Plan: Patient with history of alcoholism presents with new onset anasarca in the setting of evidence of synthetic dysfunction and labs and imaging with evidence of cirrhosis and ascites along with colitis. -Alcoholic cirrhosis a new diagnosis for patient No family hx of liver disease and viral hepatitis panel negative RUQ neg for evidence of HCC -Acute decompensation likely in the setting of infectious colitis (see below) -Status post diagnostic and therapeutic paracentesis - no evidence of SBP -STANDING WEIGHT TODAY 97.8kg, down from 99.3kg yest. -Still grossly hypervolemic but making progress with diuresis. We will go up on the Lasix dose today given creatinine so stable to try to get fluid off a little more quickly PLAN: - Lasix 80mg IV bid --> 100mg bid and spironolactone 100mg oral qd - Fluid and salt restriction - Strict I's and O's and daily weights - Treatment of colitis per below - Alcohol cessation - Lactulose - having 3-4 BMs per day - No evidence of GIB or HE (2) Colitis Current Visit: Yes Status: Acute Assessment and Plan: Differential includes infectious, ischemic, and inflammatory. Given cirrhosis, concern for Phlegmonous colitis. -Had persistent Leukocytosis so repeated CT abd/pelvis 02/14 without evidence of complications -Blood cultures NGTD -Leukocytosis trending down today -On D7 of Antibiotics. Will complete 10-14 day course of ABs as recommended for infectious colitis PLAN: - Ceftriaxone and Flagyl - can likely switch to oral tomorrow - F/u cx - Monitor clinically (3) Alcohol abuse Current Visit: No Status: Chronic Assessment and Plan: Encourage cessation. No history of withdrawal but will initiate CIWA. - CIWA (4) Physical deconditioning Current Visit: Yes Status: Acute Assessment and Plan: Feeling weak from prolonged hospital stay. Unsteady on his feet. Request physical therapy evaluation. - PT consult (5) Thrombocytopenia Current Visit: Yes Status: Acute Assessment and Plan: Likely secondary to liver disease. Stable DVT Prophylaxis: LMWH Internal Medicine: Result - Labs CBC & Chem 7: 02/16/19 04:52 02/16/19 04:52 Labs: Short CBC 02/16/19 Range/Units 04:52 WBC 11.5 H (4.3-11.1) K/mcL Hgb 12.0 L (12.9-16.9) g/dL Hct 34.8 L (37.5-50.1) % Plt Count 92 L (140-400) K/mcL BMP 02/16/19 04:52 Sodium 136 Potassium 3.8 Chloride 101 Carbon Dioxide 29 BUN 12 Creatinine 0.68 L Glucose 107 H Calcium 8.8 - ABG Interpretation ABG results: PT/INR, D-dimer PT 23.1 Seconds (9.4-12.1) H 02/15/19 05:27 Consult Discharge Plan - Plan Referrals: Fredy Gilbert MD [Primary Care Provider] -
[2019-02-16] MEDS ORDERED: Preparation H Ointment 30 GM TUBE TP PRN (20:46)
[2019-02-17] MEDS: *HR* Enoxaparin 40 MG/0.4 ML SYRINGE SQ SCH (06:17)
[2019-02-17 07:03] LABS: Mean Corpuscular HGB Conc 33.8 g/dL (31.6-35.5); Mean Platelet Volume 12.4 fL (9.4-12.4)
[2019-02-17 07:05] LABS: Hematocrit 38.5 % (37.5-50.1); Immature Platelets 13.2 % (1.1-6.1); Mean Corpuscular Hemoglobin 37.7 pg (28.0-33.3); Mean Corpuscular Volume 111.6 fL (83.0-100.0); Red Blood Count 3.45 M/mcL (4.19-5.50); Red Cell Distribution Width 15.5 % (11.5-14.5); White Blood Count 11.4 K/mcL (4.3-11.1)
[2019-02-17 07:22] LABS: Alanine Aminotransferase 33 Units/L (7-52); Albumin 3.2 g/dL (3.5-5.7); Albumin/Globulin Ratio 0.9 (1.1-2.2); Alkaline Phosphatase 164 Units/L (34-104); Aspartate Amino Transferase 58 Units/L (13-39); BUN/Creatinine Ratio 17 (6-26); Bilirubin,Total 6.4 mg/dL (0.3-1.0); Blood Urea Nitrogen 12 mg/dL (8-23); Calcium 9.2 mg/dL (8.6-10.3); Carbon Dioxide 29 mEq/L (23-29); Chloride 99 mEq/L (98-107); Globulin 3.6 g/dL (2.4-3.5); Glucose 172 mg/dL (70-105); Osmolality,Calculated 282 (280-300); Potassium 3.5 mEq/L (3.5-5.1); Sodium 134 mEq/L (136-145); Total Protein 6.8 g/dL (6.4-8.9); eGFR For African Americans > 60 (> 60); eGFR For Non-African Americans > 60 (> 60)
[2019-02-17] MEDS: Lactulose Oral Soln 20 GM/30 ML UDC PO SCH ×2 (08:00→20:48)
[2019-02-17] MEDS: Furosemide 40 MG/4 ML VIAL IVP SCH ×2 (08:01→16:00)
[2019-02-17] MEDS: Nicotine 21 MG PATCH.TD24 TD SCH (08:02)
[2019-02-17] MEDS: metroNIDAZOLE 500 MG TABLET PO SCH ×3 (08:02→20:48)
[2019-02-17] MEDS: Thiamine (B-1) 100 MG TABLET PO SCH (08:02)
[2019-02-17] MEDS: cefTRIAXone 2,000 MG in Water for inj. (sterile) 20 ML IVP SCH (08:03)
[2019-02-17] MEDS: *HR* OxyCODONE Immed Rel 5 MG TABLET PO PRN ×2 (08:21→21:07)
--- NOTE | 2019-02-17 14:12 | Internal Med Progress Note ---
Hospitalist Progress Note - Encounter Date of Encounter: 02/17/19 Time of Encounter: 14:21 - Subjective Interval History: Patient is awake and alert. Doing well this morning. Denies any fevers or chills. Having good urine output. Lower extremity swelling is improving. Having normal bowel movements. - Exam Vitals: Temp Pulse Resp BP Pulse Ox 98.0 F 109 18 141/78 93 02/17/19 11:31 02/17/19 11:31 02/17/19 11:31 02/17/19 11:31 02/17/19 11:31 Exam: General: Patient is alert, no acute distress, oriented x 3 ENT: Mucous membranes moist Respiratory: Good respiratory effort. Normal breath sounds. No wheezing or crackles. Cardiovascular: Regular rate and rhythm. s1 and s2 normal No clicks, rubs, gallops, or murmurs. Bilateral pedal edema improving. Abdomen: Abdomen is soft, nontender. Bowel sounds are present Musculoskeletal: Spontaneously moving all extremities Skin: warm, dry, intact. Neuro: Alert oriented x 3 normal cranial nerves, no focal deficits - Assessment and Plan (1) Alcoholic cirrhosis of liver with ascites Current Visit: Yes Status: Acute (2) Alcohol abuse Current Visit: No Status: Chronic (3) Colitis Current Visit: Yes Status: Acute (4) Thrombocytopenia Current Visit: Yes Status: Acute (5) Physical deconditioning Current Visit: Yes Status: Acute (6) Bilateral lower extremity edema Current Visit: Yes Status: Chronic DVT Prophylaxis: Continue Lovenox - Summary of Assessment and Plan Summary of Assessment and Plan: Alcoholic cirrhosis of the liver with ascites and lower extremity edema: Continue symptomatic treatment. Patient has had good diuresis with Lasix and spironolactone. We will transition to oral Lasix from tomorrow. Continue lactulose, thiamine. Acute colitis: Complete 10 day antibiotic course. Symptomatically patient is doing well. WBC count 11.4 today. Alcohol abuse: Counseled about cessation. Physical deconditioning: Evaluated by physical therapy today. No needs recommended. Thrombocytopenia: Chronic and stable. Platelet count 100 today. Moderate risk for complications. If patient continues to improve, possible discharge tomorrow - Time Spent with Patient Total time spent is greater than 50% in coordination of care (as documented) at patient's floor/unit and/or counseling patient: Internal Medicine: Result - Labs CBC & Chem 7: 02/17/19 05:48 02/17/19 05:48 Labs: Short CBC 02/17/19 Range/Units 05:48 WBC 11.4 H (4.3-11.1) K/mcL Hgb 13.0 (12.9-16.9) g/dL Hct 38.5 (37.5-50.1) % Plt Count 100 L (140-400) K/mcL BMP 02/17/19 05:48 Sodium 134 L Potassium 3.5 Chloride 99 Carbon Dioxide 29 BUN 12 Creatinine 0.69 L Glucose 172 H Calcium 9.2 Liver Function 02/17/19 Range/Units 05:48 Total Bilirubin 6.4 H (0.3-1.0) mg/dL AST 58 H (13-39) Units/L ALT 33 (7-52) Units/L Alkaline Phosphatase 164 H (34-104) Units/L Albumin 3.2 L (3.5-5.7) g/dL - ABG Interpretation ABG results: PT/INR, D-dimer PT 23.1 Seconds (9.4-12.1) H 02/15/19 05:27 Consult Discharge Plan - Plan Referrals: Fredy Gilbert MD [Primary Care Provider] -
[2019-02-18 04:47] LABS: Immature Granulocytes % 0.5 % (0-4)
[2019-02-18 04:49] LABS: Basophils # 0.1 K/mcL (0.0-0.2); Basophils % 1.1 %; Eosinophils # 0.4 K/mcL (0.0-0.6); Eosinophils % 3.9 %; Hematocrit 34.4 % (37.5-50.1); Immature Platelets 10.8 % (1.1-6.1); Lymphocytes # 1.7 K/mcL (0.6-4.6); Lymphocytes % 15.1 %; Mean Corpuscular HGB Conc 34.9 g/dL (31.6-35.5); Mean Corpuscular Hemoglobin 38.2 pg (28.0-33.3); Mean Corpuscular Volume 109.6 fL (83.0-100.0); Mean Platelet Volume 11.9 fL (9.4-12.4); Monocytes # 1.5 K/mcL (0.0-1.3); Monocytes % 13.1 %; Neutrophils # 7.6 K/mcL (1.6-8.9); Platelet Count 103 K/mcL (140-400); Red Blood Count 3.14 M/mcL (4.19-5.50); Red Cell Distribution Width 15.3 % (11.5-14.5); Segmented Neutrophils % 66.3 %; White Blood Count 11.4 K/mcL (4.3-11.1)
[2019-02-18 05:05] LABS: BUN/Creatinine Ratio 15 (6-26); Blood Urea Nitrogen 11 mg/dL (8-23); Calcium 8.6 mg/dL (8.6-10.3); Carbon Dioxide 28 mEq/L (23-29); Chloride 100 mEq/L (98-107); Glucose 135 mg/dL (70-105); Osmolality,Calculated 277 (280-300); Potassium 3.9 mEq/L (3.5-5.1); Sodium 133 mEq/L (136-145); eGFR For African Americans > 60 (> 60); eGFR For Non-African Americans > 60 (> 60)
[2019-02-18] MEDS: *HR* Enoxaparin 40 MG/0.4 ML SYRINGE SQ SCH (05:39)
[2019-02-18] MEDS: metroNIDAZOLE 500 MG TABLET PO SCH (07:30)
[2019-02-18] MEDS: Nicotine 21 MG PATCH.TD24 TD SCH (07:30)
[2019-02-18] MEDS: Thiamine (B-1) 100 MG TABLET PO SCH (07:30)
[2019-02-18] MEDS: Furosemide 40 MG/4 ML VIAL IVP SCH (07:31)
[2019-02-18] MEDS: cefTRIAXone 2,000 MG in Water for inj. (sterile) 20 ML IVP SCH (07:31)
[2019-02-18] MEDS: Lactulose Oral Soln 20 GM/30 ML UDC PO SCH (07:31)
[2019-02-18] MEDS: *HR* OxyCODONE Immed Rel 5 MG TABLET PO PRN (07:59)
--- NOTE | 2019-02-18 10:52 | Discharge Summary ---
- NOTES TO OUTPATIENT PROVIDER Notes to Outpatient Provider: Patient hospitalized here with new diagnosis of cirrhosis of the liver with ascites most likely related to alcohol use. He was also diagnosed with acute colitis and was treated with IV antibiotics for that. Patient was placed on diuretics with good improvement in his symptoms of lower extremity swelling and also underwent diagnostic and therapeutic paracentesis. No evidence of SBP. Patient is now doing better and is stable to be discharged home. He will follow up with GI and his PCP as outpatient. Date of Encounter: 02/18/19 Time of Encounter: 10:44 - Discharge Diagnosis (1) Alcoholic cirrhosis of liver with ascites Priority: Primary Status: Acute (2) Alcohol abuse Priority: Secondary Status: Chronic (3) Colitis Priority: Secondary Status: Acute (4) Thrombocytopenia Priority: Secondary Status: Acute (5) Physical deconditioning Priority: Secondary Status: Resolved (6) Bilateral lower extremity edema Priority: Secondary Status: Chronic Hospital course: Mr. Fang is a 69 year old male Patient hospitalized here with new diagnosis of cirrhosis of the liver with ascites most likely related to alcohol use. He was also diagnosed with acute colitis and was treated with IV antibiotics for that. Patient was placed on diuretics with good improvement in his symptoms of lower extremity swelling and also underwent diagnostic and therapeutic paracente sis. No evidence of SBP. Patient is now doing better and is stable to be discharged home. He will follow up with GI and his PCP as outpatient. He will be on fluid restriction of 1.5 L per day. He was evaluated by physical therapy and cleared from their standpoint for discharge. He was also seen by GI during his stay here. He will also take lactulose for prevention of hepatic encephalopathy and on nadolol for portal hypertension. Discharge discussed with: patient, nurse - Time Spent with Patient Total time spent providing and/or coordinating discharge services: Time spent: Greater than 30 minutes (35 min) - Discharge Medications Prescriptions: New metroNIDAZOLE [Flagyl] 500 mg PO TID #12 tablet Cefdinir [Omnicef] 300 mg PO BID #8 capsule Spironolactone [Aldactone] 100 mg PO DAILY #30 tablet Furosemide [Lasix] 80 mg PO BIDDIURETIC #60 tablet Potassium Chloride 20 meq PO DAILY #30 tab.er.prt Lactulose 10 gm PO BID #30 udc Nadolol [Corgard] 40 mg PO DAILY #30 tablet Continued Thiamine HCl [Vitamin B-1] 100 mg PO DAILY Discontinued Amlodipine Besylate 5 mg PO DAILY Metoprolol Succinate [Toprol Xl] 100 mg PO DAILY Home Medications: Thiamine HCl [Vitamin B-1] 100 mg PO DAILY 02/10/19 [History] Cefdinir [Omnicef] 300 mg PO BID #8 capsule 02/18/19 [Rx] Furosemide [Lasix] 80 mg PO BIDDIURETIC #60 tablet 02/18/19 [Rx] Lactulose 10 gm PO BID #30 udc 02/18/19 [Rx] Nadolol [Corgard] 40 mg PO DAILY #30 tablet 02/18/19 [Rx] Potassium Chloride 20 meq PO DAILY #30 tab.er.prt 02/18/19 [Rx] Spironolactone [Aldactone] 100 mg PO DAILY #30 tablet 02/18/19 [Rx] metroNIDAZOLE [Flagyl] 500 mg PO TID #12 tablet 02/18/19 [Rx] Allergies/Adverse Reactions: Allergy/AdvReac Type Severity Reaction Status Date / Time No Known Allergies Allergy Verified 01/18/19 08:43 Date of admission: 02/13/19 14:54 Primary care physician: Fredy Gilbert MD Consults: 02/16/19 08:14 Consult to Physical Therapy [CONS] Routine Comment: Evaluate, develop and implement POC Reason for Consult: Deconditioning Does patient have active BEDREST order?: No Is patient medically & hemodynamically stable?: Yes Patient assessed for mobility or mobilized this visit?: No 02/17/19 11:35 Consult to Occupational Therapy [CONS] Routine Comment: Evaluate, develop and implement POC Reason for Consult: Generalized weakness Does patient have active BEDREST order?: No Is patient medically & hemodynamically stable?: Yes Discharging clinician: Sudhir Vazquez Anticipated date of discharge: 02/18/19 - Constitutional Vitals: Temp Pulse Resp BP Pulse Ox 98.7 F 96 18 115/68 92 02/18/19 07:25 02/18/19 07:25 02/18/19 07:25 02/18/19 07:25 02/18/19 07:25 Exam: General: Patient is alert, no acute distress, oriented x 3 Respiratory: Good respiratory effort. Normal breath sounds. No wheezing or crackles. Cardiovascular: Regular rate and rhythm. s1 and s2 normal No clicks, rubs, gallops, or murmurs. Bilateral pedal edema significantly improved Abdomen: Abdomen is soft, nontender, distended, ascites present. Bowel sounds are present Musculoskeletal: Spontaneously moving all extremities Skin: warm, dry, intact. Neuro: Alert oriented x 3 normal cranial nerves, no focal deficits - Patient Status Disposition: Home, Self-Care Condition: Good Functional capacity at discharge: uses cane/walker Overall status at discharge: patient is progressing back to baseline - Discharge Instructions Instructions: Portal Hypertension (DC), Cirrhosis (DC), Abuse of Alcohol (DC) Follow Up With: Fredy Gilbert MD [Primary Care Provider] - (in 1 week) Michael Kwan MD [Partnered Physician] - (in 1week) - Diet and Activity Activity: increase activity as tolerated Diet: low fat, low cholesterol, low salt diet, other (Fluid restriction to 1.5 L per day)
[2019-02-18 11:11] VITALS: BP 149/74
[2019-02-18] MEDS ORDERED: Furosemide 40 MG TABLET PO SCH (17:00)
== END 2019-02-18 13:59 | disposition home or self-care (01) | DRG 433 ==
LOC: SUATTDRO → 2ANU 10:24 → EMEROOARM 10:24 → 2ANU 17:35 → SUATTDRO 02-13 14:54
PROVIDERS: ADMIT Student in an Organized Health Care Education/Training Program; ATTEND Internal Medicine